=== PATIENT | male | born 1990 | race Caucasian/White ===

== ENCOUNTER 2017-03-09 01:05 | Emergency (ER) | payer OTHER ==
[~2017-03-09] VITALS: Ht 182.9 cm; Wt 122.7 kg
[2017-03-09 01:11] VITALS: TEMP 36.7; Ht 182.9 cm; Wt 122.7 kg
[2017-03-09] MEDS ORDERED: PRT/20 PO (02:05)
[2017-03-09] MEDS ORDERED: OXYCODONE IR HOME PACK PO ONE (03:00)
[2017-03-09 03:08] VITALS: BP 153/99; PULSE 85; O2SAT 98
--- NOTE | 2017-03-09 06:33 | EMERGENCY ROOM VISIT NOTE ---
History First contact with patient: :20 Chief Complaint: SHOULDER PAIN Stated Complaint: L SHOULDER PAIN History of Present Illness The patient is a 26 year old male who presents to the Emergency Room with complaints of left shoulder pain for the past one day. The patient has a history of ongoing shoulder pain that has been doing well for the past few months. 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 He does not recall a distinct injury or trauma yesterday, but states that she feels like his shoulder is popping in and out of position. He does not have numbness or paresthesias. No deformity or significant bruising. The patient is established with orthopedics in [place], and is confident that he can be seen by them later today. The patient's primary concern is for a fracture or dislocation. Does not have complaints and rates his discomfort a 5/10. Review of Systems More than 10 systems were reviewed and otherwise negative with the exception of history of present illness. Past Medical/Surgical History No chronic medical disease Family History No pertinent family history Social History Smoking Status: Never Smoker Occupation Status: employed Current/Historical Medications Scheduled PRN Pantoprazole (Protonix), 20 MG PO DAILY PRN for Heartburn Allergies Coded Allergies: No Known Allergies (Unverified , 03/09/17) Physical Exam Vital Signs Date Time Temp Pulse Resp B/P Pulse Ox O2 Delivery O2 Flow Rate FiO2 03/09/17 03:08 85 18 153/99 98 03/09/17 01:11 36.7 96 18 146/102 97 Room Air Pain Rating (0-10): 3.0 Physical Exam VITALS: Vitals are noted on the nurse's note and reviewed by myself. Vital signs stable. GENERAL: Well-developed, well-nourished, white male, who is in no acute distress and resting comfortably. Patient is cooperative with the examination. HEAD: Normocephalic atraumatic. NECK: Supple without nuchal rigidity. No lymphadenopathy. No thyromegaly. Cervical spine is nontender. HEART: Regular rate and rhythm without murmurs gallops or rubs. LUNGS: Clear to auscultation bilaterally without wheezes, rales or rhonchi. No retractions or accessory muscle use. MUSCULOSKELETAL: No muscle atrophy, erythema, or edema noted. Positive tenderness over the distal clavicle. The patient is hesitant with abduction and external rotation. No CVA or scapular tenderness. Interviewing Clerk strength is 5/5. NEURO: Patient was alert and oriented to person place and time. CN II through XII grossly intact. Medical Decision & Procedures Medications Administered Medications (Trade) Dose Ordered Sig/Richard Route Start Time Stop Time Status Last Admin Dose Admin Oxycodone HCl (Roxicodone Immediate Rel 5MG Home Pack) 1 homepack UD ONCE PO 03/09/17 03:00 03/09/17 03:01 DC 03/09/17 03:00 1 HOMEPACK ED Course Physical exam and history were performed. Nursing notes and EMR were reviewed. Patient appears to have left shoulder pain for the past one day. X-rays were performed and are without obvious fracture. He does not appear dislocated. He may have old injury to his clavicle, and may have an AC joint separation. The patient is confident that he can see his orthopedist today, and this appears reasonable. The patient will be placed in an arm sling and given a home pack of OxyIR. The patient was invited back to the ER with any new, worsening, or concerning symptoms. The chart was completed utilizing [employer] Speech Voice Recognition Software. Grammatical errors, random word insertions, pronoun errors, and incomplete sentences are an occasional consequence of this system due to software limitations, ambient noise, and hardware issues. Any formal questions or concerns about the content, text, or information contained within the body of this dictation should be directly addressed to the provider for clarification. . Medical Decision Differential diagnosis includes, but is not limited to: Sprain, strain, fracture , dislocation, subluxation, contusion, and others Impression Primary Impression: Injury of left shoulder Departure Information Dispostion Home / Self-Care Condition GOOD Forms HOME CARE DOCUMENTATION FORM, IMPORTANT VISIT INFORMATION Patient Instructions My [facility] Additional Instructions You were seen and evaluated today on an emergency basis only. This is not a substitute for, or an effort to provide, complete comprehensive medical care. It is not possible to recognize and treat all injuries or illnesses in a single emergency department visit. For this reason it is recommended that you followup with Orthopedics today for ongoing care and evaluation. For baseline pain relief you may alternate ibuprofen and acetaminophen every 4 hours for pain control. Take 600 mg ibuprofen (Advil) and then 4 hours later take 1000 mg acetaminophen (Tylenol). Do not take more than 3000 mg acetaminophen in a single day. Oxycodone (OxyIR) 5mg: Take ONE pill every SIX hours for breakthrough pain. Avoid alcohol, operating machinery or dangerous equipment, working on ladders or roofs, DRIVING, or situations where being under the influence may be dangerous. It is recommended to use an aegn-iug-jtzcrcs stool softener such as Colace, 100mg twice daily while taking this medication to avoid constipation. You are welcome to return to the emergency department anytime with new, worsening, or concerning symptoms.
--- NOTE | 2017-03-09 07:13 | DIAGNOSTIC IMAGING REPORT ---
LEFT CLAVICLE CLINICAL HISTORY: left shoulder/clavicle injury COMPARISON: None FINDINGS: No acute fracture of the left clavicle is identified. There is slight deformity of the distal left clavicle. There is mild widening of the AC joint interval. IMPRESSION: 1. No acute fracture of the left clavicle. 2. Mild widening of the left AC joint interval which may reflect an age indeterminate AC joint separation. 3. Deformity of the distal left clavicle which could reflect an old injury. Electronically signed by: Dax Edwards M.D. 03/09/2017 7:12 AM Dictated Date/Time: 03/09/2017 7:10 AM
--- NOTE | 2017-03-09 07:14 | DIAGNOSTIC IMAGING REPORT ---
LEFT SHOULDER MIN 2 VIEWS ROUTINE CLINICAL HISTORY: Left shoulder/clavicle injury COMPARISON: None FINDINGS: Alignment of the left glenohumeral joint is anatomic. There is no acute fracture. There is mild widening of the AC joint interval and slight deformity of the distal left clavicle. IMPRESSION: 1. No acute fracture of the left shoulder. 2. Mild widening of the left AC joint interval which suggests an age indeterminate AC joint separation. 3. Deformity of the distal clavicle which suggests an old injury. Electronically signed by: Dax Edwards M.D. 03/09/2017 7:13 AM Dictated Date/Time: 03/09/2017 7:12 AM
== END 2017-03-09 03:09 | disposition home or self-care (01) ==
LOC: C.EDB 01:07
DX: S49.92XA Unspecified injury of left shoulder and upper arm, initial encounter (principal); X50.9XXA Other and unspecified overexertion or strenuous movements or postures, initial encounter